=== PATIENT | female | born 1945 | race Hispanic/Latino ===

== ENCOUNTER 2018-05-21 18:09 | Emergency (ER) | payer MEDICARE | END 2018-05-21 19:41 | disposition home or self-care (01) | LOC: EDH 18:09 | DX: S62.91XA Unspecified fracture of right hand, initial encounter for closed fracture (principal); M25.531 Pain in right wrist; E11.9 Type 2 diabetes mellitus without complications; E78.5 Hyperlipidemia, unspecified; I10 Essential (primary) hypertension; Z88.0 Allergy status to penicillin; Z91.041 Radiographic dye allergy status; Z88.8 Allergy status to other drugs, medicaments and biological substances; W18.39XA Other fall on same level, initial encounter; Y93.89 Activity, other specified; Y92.89 Other specified places as the place of occurrence of the external cause; Y99.8 Other external cause status | CPT/HCPCS: 29125; 73110 ==

== ENCOUNTER 2018-06-03 13:34 | Emergency (ER) | payer MEDICARE | END 2018-06-03 13:53 | disposition left against medical advice (07) | LOC: EDH 13:34 | DX: M79.601 Pain in right arm (principal); Z53.21 Procedure and treatment not carried out due to patient leaving prior to being seen by health care provider ==

== ENCOUNTER 2019-02-15 15:18 | Inpatient (IN) | payer MEDICARE ==
[~2019-02-15] VITALS: Ht 167.6 cm; Wt 66.5 kg
[2019-02-15 15:37] LABS: BASOPHILS % (AUTO) 0.5 % (0.0-5.0); EOSINOPHILS % (AUTO) 1.1 % (0.0-8.0); LYMPHOCYTES % (AUTO) 29.4 % (21.0-51.0); MEAN CORPUSCULAR HGB CONC 33.9 g/dL (32.0-36.0); MEAN CORPUSCULAR VOLUME 91.5 fL (79-99); MONOCYTES % (AUTO) 10.1 % (3.0-13.0); NEUTROPHILS % (AUTO) 58.9 % (40.0-77.0); NUCLEATED RED BLOOD CELLS 0.1 % (0.0-0.19); PLATELET COUNT (AUTO) 146 K/uL (130-400); RED BLOOD CELL COUNT(AUTO) 3.83 MIL/uL (4.00-5.50); RED CELL DISTRIBUTION WIDTH 13.8 % (11.0-15.5); WHITE BLOOD COUNT (AUTO) 5.5 K/uL (4.8-10.8)
[2019-02-15 15:51] LABS: CREATININE 0.7 mg/dL (0.5-1.5); POTASSIUM 3.8 mmol/L (3.5-5.1)
[2019-02-15 15:52] LABS: INR 0.93 (0.85-1.15); PARTIAL THROMBOPLASTIN TIME 27.1 SEC (26.3-35.5); PROTHROMBIN TIME 9.8 SEC (9.6-11.6)
[2019-02-15 15:55] LABS: ALBUMIN 3.8 g/dL (3.5-5.0); BILIRUBIN,TOTAL 0.5 mg/dL (0.2-1.0); TOTAL PROTEIN, SERUM 7.7 g/dL (6.0-8.3)
[2019-02-15] MEDS ORDERED: ASPIRIN 325 MG TABLET ONE (16:03)
[2019-02-15 16:32] LABS: APPEARANCE,URINE Clear (CLEAR); BILIRUBIN,URINE Negative (NEGATIVE); COLOR,URINE Yellow (YELLOW); GLUCOSE, URINE (UA) TRACE mg/dL (NEGATIVE); KETONES,URINE Negative (NEGATIVE); LEUKOCYTE ESTERASE ,URINE Small (NEGATIVE); NITRATE,URINE Negative (NEGATIVE); OCCULT BLOOD,URINE Negative (NEGATIVE); PH,URINE 6.5 (5.0-8.0); PROTEIN,URINE Negative (NEGATIVE)
[2019-02-15 16:43] LABS: BACTERIA,URINE Rare /HPF (None Seen); RBC,URINE None Seen /HPF (0-1); SQUAMOUS EPITHELIAL CELL,UR 0-2 /HPF (0-2)
[2019-02-15] MEDS ORDERED: NITROGLYCERIN 1GM/1 INCH PACKET TD ONE (17:00)
[2019-02-15] MEDS ORDERED: NITROGLYCERIN 0.2 MG/HR PATCH TD SCH (21:00)
[2019-02-15] MEDS: INSULIN HUMULIN R 100 UNIT/ML 3ML SQ SCH (21:00)
[2019-02-15 21:30] VITALS: BP 182/82
[2019-02-15] MEDS ORDERED: METF-446 PO (21:45)
[2019-02-15] MEDS ORDERED: CITA10TA7 PO (21:45)
[2019-02-15] MEDS ORDERED: LORA10TA7 PO (21:45)
[2019-02-15] MEDS ORDERED: SIMV20TA6 PO (21:45)
[2019-02-15] MEDS ORDERED: CALC1TAB3 PO (21:45)
[2019-02-15] MEDS ORDERED: OLOP2.5D6 OU (21:45)
[2019-02-15] MEDS ORDERED: ASPI81TA40 PO (21:45)
[2019-02-15] MEDS ORDERED: SITA100T12 PO (21:45)
[2019-02-15] MEDS ORDERED: AMLO5TAB9 PO (21:45)
--- NOTE | 2019-02-15 21:45 | NUR ---
ADMIT NOTE ADMIT TO ROOM 430 VIA STRETCHER FROM ER. PATIENT AWAKE, ALERT, OX3, NO SOB, NO C/O PAIN AT THIS TIME, PATIENTS DAUGHTER AT BEDSIDE, TEACH PLAN OF CARE AND EXPECTED OUTCOME , PATIENT VERBALIZES UNDERSTANDING VIA TEACH BACK
[2019-02-15] MEDS: METOPROLOL TARTRATE 25 MG TAB PO SCH (22:42)
[2019-02-16] VITALS: BP 139/75
[2019-02-16 04:00] VITALS: BP 134/70
[2019-02-16] MEDS ORDERED: NITROGLYCERIN 1GM/1 INCH PACKET TD ONE (04:10)
[2019-02-16] MEDS ORDERED: ACETAMINOPHEN 325 MG TAB ONE (04:20)
[2019-02-16] MEDS ORDERED: ACETAMINOPHEN 325 MG TAB PO PRN (04:30)
[2019-02-16] MEDS: NITROGLYCERIN 1GM/1 INCH PACKET TD SCH ×2 (05:22→13:22)
[2019-02-16] MEDS: INSULIN HUMULIN R 100 UNIT/ML 3ML SQ SCH ×4 (05:39→21:25)
[2019-02-16 05:49] LABS: HEMATOCRIT 36.5 % (36-48); MEAN CORPUSCULAR HEMOGLOBIN 30.8 pg (27.0-33.0); MEAN CORPUSCULAR HGB CONC 33.7 g/dL (32.0-36.0); MEAN CORPUSCULAR VOLUME 91.5 fL (79-99); PLATELET COUNT (AUTO) 160 K/uL (130-400); RED BLOOD CELL COUNT(AUTO) 3.99 MIL/uL (4.00-5.50)
[2019-02-16 06:05] LABS: CREATININE 0.6 mg/dL (0.5-1.5)
[2019-02-16] MEDS: FAMOTIDINE/PF 20 MG/2 ML VIAL IV SCH (08:30)
[2019-02-16] MEDS: ACETAMINOPHEN 325 MG TAB PO PRN (08:30)
[2019-02-16] MEDS: METOPROLOL TARTRATE 25 MG TAB PO SCH ×2 (08:31→20:22)
[2019-02-16] MEDS: ENOXAPARIN SODIUM 40 MG/0.4 ML SYRINGE SQ SCH (08:31)
[2019-02-16 08:34] VITALS: BP 158/88
[2019-02-16 11:35] VITALS: BP 133/77
--- NOTE | 2019-02-16 13:00 | NUR ---
INITIAL ATTEMPTED PT IN [facility], WILL RETURN. PER NOTES, UP AMBULATORY, FAMILY SUPPORT, PAIN FREE, CARDIAC WORK UP NEGATIVE, EXPECT DC TODAY OR TOMORROW Addendum: 02/17/19 at 0800 by FIFI BARNHART RN CM Amended: Links added.
--- NOTE | 2019-02-16 14:49 | NUR ---
ASKED RE PLAN OF CARE [facility] STATES 24 TO 48 HRS. NOT NTICIPATING DISCHARGE YET Addendum: 02/16/19 at 1450 by FIFI BARNHART RN CM Amended: Links added.
[2019-02-16 16:28] VITALS: BP 134/78
[2019-02-16 19:05] VITALS: BP 134/69
[2019-02-16] MEDS: AMLODIPINE BESYLATE 5 MG TAB PO SCH (20:22)
[2019-02-17 00:03] VITALS: BP 137/78
[2019-02-17 03:59] VITALS: BP 129/74
[2019-02-17 04:36] LABS: HEMATOCRIT 38.9 % (36-48); MEAN CORPUSCULAR HEMOGLOBIN 31.1 pg (27.0-33.0); MEAN CORPUSCULAR VOLUME 91.5 fL (79-99); NUCLEATED RED BLOOD CELLS 0.1 % (0.0-0.19); PLATELET COUNT (AUTO) 151 K/uL (130-400); RED BLOOD CELL COUNT(AUTO) 4.25 MIL/uL (4.00-5.50); RED CELL DISTRIBUTION WIDTH 13.9 % (11.0-15.5); WHITE BLOOD COUNT (AUTO) 4.5 K/uL (4.8-10.8)
[2019-02-17 04:50] LABS: CREATININE 0.7 mg/dL (0.5-1.5); POTASSIUM 3.9 mmol/L (3.5-5.1)
[2019-02-17] MEDS: INSULIN HUMULIN R 100 UNIT/ML 3ML SQ SCH ×2 (06:06→12:05)
[2019-02-17] MEDS: ACETAMINOPHEN 325 MG TAB PO PRN (06:08)
[2019-02-17 08:17] VITALS: BP 128/76
[2019-02-17] MEDS: FAMOTIDINE/PF 20 MG/2 ML VIAL IV SCH (08:43)
[2019-02-17] MEDS: AMLODIPINE BESYLATE 5 MG TAB PO SCH (08:44)
[2019-02-17] MEDS: METOPROLOL TARTRATE 25 MG TAB PO SCH (08:44)
[2019-02-17] MEDS: ENOXAPARIN SODIUM 40 MG/0.4 ML SYRINGE SQ SCH (08:44)
[2019-02-17] MEDS ORDERED: CITALOPRAM 20 MG TABLET PO SCH (09:00)
[2019-02-17] MEDS ORDERED: LORATADINE 10 MG TABLET PO SCH (09:00)
[2019-02-17] MEDS ORDERED: ASPIRIN 81MG TAB.CHEW PO SCH (09:00)
[2019-02-17] MEDS ORDERED: HOME MEDICATION 1 EACH OP SCH (09:00)
[2019-02-17 11:28] VITALS: BP 125/67
--- NOTE | 2019-02-17 12:05 | NUR ---
DISCHARGE DISCHARGE TEACHING DONE WITH PATIENTUSING TEACHBACK METHOD, VERBALIZED UNDERSTANDING. NO NOTED SOB OR DISTRESS. NO NEW PRESCRIPTIONS GIVEN. PT AWARE OF NEED TO SET UP APPOINTMENT WITH CARDIOLOGY AND PCP. IV REMOVED, CATH TIP INTACT. TELEPACK REMOVED AND RETURNED.PENDING TO BE TRANSFERRED OUT VIA PRIVATE VEHICLE.
[2019-02-18] MEDS ORDERED: SIMVASTATIN 20 MG TABLET PO SCH (09:00)
== END 2019-02-17 12:37 | disposition home or self-care (01) | DRG 206 ==
LOC: EDH 15:18 → EDHIP 17:38 → 4AH 21:31
PROVIDERS: ADMIT Hospitalist; ATTEND Hospitalist
DX: M94.0 Chondrocostal junction syndrome [Tietze] (principal); I25.110 Atherosclerotic heart disease of native coronary artery with unstable angina pectoris; K21.9 Gastro-esophageal reflux disease without esophagitis; E11.65 Type 2 diabetes mellitus with hyperglycemia; E78.5 Hyperlipidemia, unspecified; I10 Essential (primary) hypertension; E66.9 Obesity, unspecified; I34.0 Nonrheumatic mitral (valve) insufficiency; M19.90 Unspecified osteoarthritis, unspecified site; Z68.23 Body mass index [BMI] 23.0-23.9, adult; Z88.0 Allergy status to penicillin; Z88.8 Allergy status to other drugs, medicaments and biological substances
CPT/HCPCS: 36415; 71045; 80048; 80053; 81001; 82150; 82550; 82948; 83690; 84484; 85025; 85027; 85610; 85730; 93005; 93306; 93880; 99291; G0378; J1650; J1815; J3490

== ENCOUNTER 2019-07-03 07:49 | Day surgery (SDC) | payer MEDICARE ==
[~2019-07-03] VITALS: Ht 167.6 cm; Wt 69.1 kg
[~2019-07-03 07:49] MED LIST: ACET1TAB12 PO; AMLO5TAB9 PO; ASPI81TA40 PO; CALC1TAB3 PO; CHOL400C9 PO; CLON0.1T PO; LOSA25TA41 PO; METF-446 PO; OMEP40CA13 PO; SIMV-43 PO; SITA100T12 PO; SODIUM CHLORIDE 0.9% 1000ML 1,000 ML IV ONE; TRAM50TA4 PO
[2019-07-03 08:39] VITALS: BP 140/76
[2019-07-03] MEDS ORDERED: PROPOFOL 10 MG/ML 20ML VIAL IV ONE ×2 (09:31)
[2019-07-03 10:02] VITALS: BP 96/60
[2019-07-03 10:07] VITALS: BP 106/65
[2019-07-03 10:14] VITALS: BP 108/66
[2019-07-03 10:22] VITALS: BP 112/73
[2019-07-03 10:31] VITALS: BP 116/75
== END 2019-07-03 10:35 | disposition home or self-care (01) ==
LOC: DAH 07:49 → ENDO 07:49
PROVIDERS: ATTEND Internal Medicine
DX: D12.3 Benign neoplasm of transverse colon (principal); D12.8 Benign neoplasm of rectum; K21.9 Gastro-esophageal reflux disease without esophagitis; K29.50 Unspecified chronic gastritis without bleeding; K57.30 Diverticulosis of large intestine without perforation or abscess without bleeding; K64.0 First degree hemorrhoids; E11.9 Type 2 diabetes mellitus without complications; E78.5 Hyperlipidemia, unspecified; I10 Essential (primary) hypertension; M19.90 Unspecified osteoarthritis, unspecified site; Z88.0 Allergy status to penicillin; Z88.1 Allergy status to other antibiotic agents; Z88.8 Allergy status to other drugs, medicaments and biological substances; Z88.3 Allergy status to other anti-infective agents; Z79.84 Long term (current) use of oral hypoglycemic drugs; Z79.899 Other long term (current) drug therapy; Z86.010 Personal history of colon polyps; Z98.890 Other specified postprocedural states
CPT/HCPCS: 43239; 45380; 45385; 82948 ×2; 88305; A4215; A4221; A4222; A4223; A4606; A4615; A4663; J2704 ×2; J7030

== ENCOUNTER → 2019-09-20 | Outpatient (CLI) | payer MEDICARE ==
[~2019-09-20] MED LIST changes: -SODIUM CHLORIDE 0.9% 1000ML 1,000 ML IV ONE
== END | disposition home or self-care (01) ==
LOC: RAH 07:41
PROVIDERS: ATTEND Internal Medicine Gastroenterology
DX: N20.0 Calculus of kidney (principal); R94.5 Abnormal results of liver function studies
CPT/HCPCS: 76700

== ENCOUNTER → 2020-04-15 | Outpatient (CLI) | payer MEDICARE | END | disposition home or self-care (01) | LOC: RAH 09:31 | PROVIDERS: ATTEND Internal Medicine Gastroenterology | DX: K76.9 Liver disease, unspecified (principal); R94.5 Abnormal results of liver function studies | CPT/HCPCS: 76700; 93975 ==

== ENCOUNTER 2020-11-12 16:40 | Observation (INO) | payer MEDICARE ==
[~2020-11-12] VITALS: Ht 167.6 cm; Wt 70.3 kg
[~2020-11-12 16:40] MED LIST changes: +AMLO-257 PO; -AMLO5TAB9 PO
[2020-11-12 17:09] LABS: BASOPHILS % (AUTO) 0.6 % (0.0-5.0); EOSINOPHILS % (AUTO) 2.3 % (0.0-8.0); HEMATOCRIT 35.9 % (36-48); LYMPHOCYTES % (AUTO) 29.8 % (21.0-51.0); MEAN CORPUSCULAR HEMOGLOBIN 30.3 pg (27.0-33.0); MEAN CORPUSCULAR HGB CONC 33.7 g/dL (32.0-36.0); MEAN CORPUSCULAR VOLUME 89.8 fL (79-99); MONOCYTES % (AUTO) 9.1 % (3.0-13.0); NEUTROPHILS % (AUTO) 57.9 % (40.0-77.0); PLATELET COUNT (AUTO) 171 K/uL (130-400); RED CELL DISTRIBUTION WIDTH 13.3 % (11.0-15.5); WHITE BLOOD COUNT (AUTO) 6.4 K/uL (4.8-10.8)
[2020-11-12 17:21] LABS: CREATININE 0.9 mg/dL (0.5-1.5)
[2020-11-12 17:24] LABS: INR 0.99 (0.85-1.15); PROTHROMBIN TIME 10.8 SEC (9.6-11.6)
[2020-11-12 17:25] LABS: ALBUMIN 4.4 g/dL (3.5-5.0); BILIRUBIN,TOTAL 0.5 mg/dL (0.2-1.0); PARTIAL THROMBOPLASTIN TIME 26.2 SEC (26.3-35.5); TOTAL PROTEIN, SERUM 8.7 g/dL (6.0-8.3)
[2020-11-12] MEDS ORDERED: NITROGLYCERIN 1GM/1 INCH PACKET TD ONE (17:45)
[2020-11-12] MEDS ORDERED: NITROGLYCERIN 0.4 MG SL TAB SL ONE (17:45)
[2020-11-12] MEDS ORDERED: ASPIRIN 325 MG TABLET ONE (17:45)
[2020-11-12] MEDS ORDERED: ACETAMINOPHEN 325 MG TAB PO PRN (20:30)
[2020-11-12] MEDS ORDERED: MORPHINE SULFATE 2 MG/ML 1ML SYG IVP PRN (20:30)
[2020-11-12] MEDS ORDERED: ONDANSETRON HCL 4 MG/2 ML VIAL IVP PRN (20:30)
[2020-11-12] MEDS: METOPROLOL TARTRATE 25 MG TAB PO SCH (21:00)
[2020-11-12] MEDS: INSULIN R PO SS1 SQ SCH (21:00)
[2020-11-12 22:39] LABS: CREATINE KINASE, TOTAL 79 U/L (21-232); MYOGLOBIN 27 ng/mL (10-92); TROPONIN I < 0.04 ng/mL (0.00-0.06)
[2020-11-13] MEDS ORDERED: ACETAMINOPHEN 325 MG TAB ONE (01:18)
[2020-11-13 02:53] VITALS: BP 152/76
[2020-11-13 05:43] LABS: HEMATOCRIT 34.4 % (36-48); MEAN CORPUSCULAR HEMOGLOBIN 30.4 pg (27.0-33.0); MEAN CORPUSCULAR HGB CONC 33.7 g/dL (32.0-36.0); MEAN CORPUSCULAR VOLUME 90.1 fL (79-99); RED BLOOD CELL COUNT(AUTO) 3.82 MIL/uL (4.00-5.50); RED CELL DISTRIBUTION WIDTH 13.3 % (11.0-15.5); WHITE BLOOD COUNT (AUTO) 5.8 K/uL (4.8-10.8)
[2020-11-13] MEDS ORDERED: METF-444 PO (05:51)
[2020-11-13] MEDS ORDERED: LORA10TA7 PO (05:51)
[2020-11-13 05:53] LABS: HEMOGLOBIN A1C 7.4 % (4.0-6.0)
[2020-11-13 06:07] LABS: ALANINE AMINOTRANSFERASE 82 U/L (12-78); ALBUMIN 3.7 g/dL (3.5-5.0); ASPARTATE AMINOTRANSFERASE 58 U/L (10-37); BILIRUBIN,TOTAL 0.8 mg/dL (0.2-1.0); CARBON DIOXIDE 29 mmol/L (21-32); CHLORIDE 101 mmol/L (101-111); CHOLESTEROL 162 mg/dL (<200); CREATINE KINASE, TOTAL 57 U/L (21-232); CREATININE 0.9 mg/dL (0.5-1.5); GLOMERULAR FILTR. RATE CALC 65 mL/min (>60); GLUCOSE,RANDOM 210 mg/dL (70-105); HDL CHOLESTEROL 75 mg/dL (35-85); LDL DIRECT 69 mg/dL (0-99); MYOGLOBIN 27 ng/mL (10-92); POTASSIUM 3.8 mmol/L (3.5-5.1); SODIUM SERUM 136 mmol/L (136-145); TOTAL PROTEIN, SERUM 7.8 g/dL (6.0-8.3); TRIGLYCERIDES 59 mg/dL (30-200); TROPONIN I < 0.04 ng/mL (0.00-0.06); UREA NITROGEN, BLOOD 15 mg/dL (7-18)
[2020-11-13] MEDS: INSULIN R PO SS1 SQ SCH ×4 (06:15→21:00)
[2020-11-13 07:00] VITALS: BP 159/77
[2020-11-13 11:30] VITALS: BP 142/87
[2020-11-13] MEDS: ASPIRIN 81MG TAB.CHEW PO SCH (12:02)
[2020-11-13] MEDS: ENOXAPARIN SODIUM 40 MG/0.4 ML SYRINGE SQ SCH (12:02)
[2020-11-13] MEDS: METOPROLOL TARTRATE 25 MG TAB PO SCH ×2 (12:02→21:16)
[2020-11-13 16:00] VITALS: BP 138/74
[2020-11-13 19:45] VITALS: BP 129/73
[2020-11-13] MEDS ORDERED: LACTULOSE 20 GM/30 ML UDCUP PO PRN (21:15)
[2020-11-13] MEDS: LACTULOSE 20 GM/30 ML UDCUP PO SCH (21:15)
[2020-11-13 23:53] VITALS: BP 136/69
[2020-11-14] MEDS: LACTULOSE 20 GM/30 ML UDCUP PO SCH ×3 (03:15→15:15)
[2020-11-14 04:17] VITALS: BP 146/82
[2020-11-14 05:30] LABS: HEMATOCRIT 35.9 % (36-48); MEAN CORPUSCULAR HGB CONC 33.7 g/dL (32.0-36.0); MEAN CORPUSCULAR VOLUME 89.1 fL (79-99); RED BLOOD CELL COUNT(AUTO) 4.03 MIL/uL (4.00-5.50); RED CELL DISTRIBUTION WIDTH 13.2 % (11.0-15.5); WHITE BLOOD COUNT (AUTO) 4.8 K/uL (4.8-10.8)
[2020-11-14 05:52] LABS: MAGNESIUM 1.9 mg/dL (1.80-2.40); POTASSIUM 4.1 mmol/L (3.5-5.1)
[2020-11-14 05:57] LABS: CREATININE 0.8 mg/dL (0.5-1.5)
[2020-11-14] MEDS: INSULIN R PO SS1 SQ SCH ×3 (06:44→16:30)
[2020-11-14 07:00] VITALS: BP 143/75
[2020-11-14] MEDS: METOPROLOL TARTRATE 25 MG TAB PO SCH (10:14)
[2020-11-14] MEDS: ASPIRIN 81MG TAB.CHEW PO SCH (10:14)
[2020-11-14] MEDS: ENOXAPARIN SODIUM 40 MG/0.4 ML SYRINGE SQ SCH (10:14)
[2020-11-14 11:30] VITALS: BP 167/77
[2020-11-14 16:16] VITALS: BP 108/46
== END 2020-11-14 18:10 | disposition home or self-care (01) ==
LOC: EDH 16:40 → INTOOBSV 19:05 → EDHIP 19:05 → 3DH 11-13 02:03
PROVIDERS: ADMIT Internal Medicine Infectious Disease; ATTEND Internal Medicine Infectious Disease
DX: R07.89 Other chest pain (principal); I10 Essential (primary) hypertension; I25.10 Atherosclerotic heart disease of native coronary artery without angina pectoris; E11.9 Type 2 diabetes mellitus without complications; E78.5 Hyperlipidemia, unspecified; R74.8 Abnormal levels of other serum enzymes; M19.90 Unspecified osteoarthritis, unspecified site; E66.9 Obesity, unspecified; Z79.84 Long term (current) use of oral hypoglycemic drugs; Z79.899 Other long term (current) drug therapy; Z88.0 Allergy status to penicillin; Z88.1 Allergy status to other antibiotic agents; Z91.041 Radiographic dye allergy status; Z88.5 Allergy status to narcotic agent; Z88.8 Allergy status to other drugs, medicaments and biological substances; Z68.25 Body mass index [BMI] 25.0-25.9, adult
CPT/HCPCS: 36415 ×3; 71045; 80048; 80053 ×2; 80061; 82550 ×2; 82948 ×7; 83036; 83735 ×2; 83874 ×2; 84484 ×3; 85025; 85027 ×2; 85610; 85730; 93005; 96372 ×2; 99285; G0378 ×47; J1650 ×2; J1815

== ENCOUNTER → 2020-11-17 | Outpatient (CLI) | payer OTHER ==
[~2020-11-17] MED LIST changes: +LORA10TA7 PO; +METF-444 PO; -METF-446 PO
== END | disposition home or self-care (01) ==
LOC: RAH 10:02
PROVIDERS: ATTEND Internal Medicine Cardiovascular Disease
DX: Z13.6 Encounter for screening for cardiovascular disorders (principal); I10 Essential (primary) hypertension
CPT/HCPCS: 75571

== ENCOUNTER → 2022-02-08 | Outpatient (CLI) | payer MEDICARE ==
[~2022-02-08] MED LIST changes: -OMEP40CA13 PO; +OMEP40CA21 PO
== END | disposition home or self-care (01) ==
LOC: RAH 10:00
PROVIDERS: ATTEND Internal Medicine Gastroenterology
DX: R10.11 Right upper quadrant pain (principal)
CPT/HCPCS: 71100

== ENCOUNTER → 2022-12-14 | Outpatient (CLI) | payer MEDICARE | END | disposition home or self-care (01) | LOC: RAH 08:11 | PROVIDERS: ATTEND Internal Medicine Nephrology | DX: Z12.31 Encounter for screening mammogram for malignant neoplasm of breast (principal) | CPT/HCPCS: 77067 ==

== ENCOUNTER → 2023-03-03 | Outpatient (CLI) | payer MEDICARE | END | disposition home or self-care (01) | LOC: RAH 07:50 | PROVIDERS: ATTEND Internal Medicine Nephrology | DX: R10.11 Right upper quadrant pain (principal) | CPT/HCPCS: 76700 ==

== ENCOUNTER 2023-06-03 10:38 | Observation (INO) | payer MEDICARE ==
[~2023-06-03] VITALS: Ht 167.6 cm; Wt 70.0 kg
[2023-06-03 11:04] LABS: BASOPHILS # (AUTO) 0.04 K/uL (0.00-0.20); BASOPHILS % (AUTO) 0.7 % (0.0-5.0); EOSINOPHILS # (AUTO) 0.14 K/uL (0.00-0.70); EOSINOPHILS % (AUTO) 2.6 % (0.0-8.0); HEMATOCRIT 35.6 % (36-48); IMMATURE GRANULOCYTE ABSOLUTE 0.03 K/uL (0-1); LYMPHOCYTES # (AUTO) 1.5 K/uL (1.0-4.8); LYMPHOCYTES % (AUTO) 28.4 % (21.0-51.0); MEAN CORPUSCULAR HEMOGLOBIN 30.1 pg (27.0-33.0); MEAN CORPUSCULAR HGB CONC 33.1 g/dL (32.0-36.0); MEAN CORPUSCULAR VOLUME 90.8 fL (79-99); MONOCYTES # (AUTO) 0.5 K/uL (0.1-1.0); MONOCYTES % (AUTO) 8.7 % (3.0-13.0); NEUTROPHILS # (AUTO) 3.2 K/uL (1.8-7.7); PLATELET COUNT (AUTO) 198 K/uL (130-400); RED BLOOD CELL COUNT(AUTO) 3.92 MIL/uL (4.00-5.50); RED CELL DISTRIBUTION WIDTH 14.3 % (11.0-15.5); WHITE BLOOD COUNT (AUTO) 5.4 K/uL (4.8-10.8)
[2023-06-03 11:12] LABS: CREATININE 0.8 mg/dL (0.5-1.5); POTASSIUM 4.1 mmol/L (3.5-5.1)
[2023-06-03 11:16] LABS: ALBUMIN 3.7 g/dL (3.5-5.0); BILIRUBIN,TOTAL 0.6 mg/dL (0.2-1.0); MAGNESIUM 1.5 mg/dL (1.80-2.40); TOTAL PROTEIN, SERUM 8.1 g/dL (6.0-8.3)
[2023-06-03] MEDS ORDERED: ONDANSETRON 4MG INJ IVP ONE (12:00)
[2023-06-03] MEDS ORDERED: PROCHLORPERAZINE 10MG/2ML INJ IV ONE (12:30)
[2023-06-03 14:23] LABS: APPEARANCE,URINE CLEAR (CLEAR); BILIRUBIN,URINE NEGATIVE (NEGATIVE); COLOR,URINE LIGHT-YELLOW (YELLOW); GLUCOSE, URINE (UA) 30 mg/dL (NEGATIVE); KETONES,URINE NEGATIVE (NEGATIVE); LEUKOCYTE ESTERASE ,URINE NEGATIVE Leu/uL (NEGATIVE); NITRATE,URINE NEGATIVE (NEGATIVE); OCCULT BLOOD,URINE NEGATIVE (NEGATIVE); PH,URINE 5.5 (5.0-8.0); PROTEIN,URINE NEGATIVE (NEGATIVE); UROBILINOGEN,URINE 0.2 mg/dL (0.2-1.0)
[2023-06-03 14:25] LABS: ADD UA MICROSCOPIC YES
[2023-06-03 14:29] LABS: MUCUS,URINE RARE LPF (None Seen); RBC,URINE 0-1 /HPF (0-1); WBC,URINE 0-1 /HPF (0-1)
[2023-06-03] MEDS ORDERED: ONDANSETRON 4MG INJ IVP PRN (15:00)
[2023-06-03] MEDS ORDERED: MORPHINE 2 MG SYG IVP PRN (15:00)
[2023-06-03] MEDS ORDERED: ACETAMINOPHEN 325 MG TAB PO PRN (15:00)
[2023-06-03] MEDS ORDERED: CITA10TA89 PO (16:14)
[2023-06-03] MEDS ORDERED: CYCL-309 PO (16:14)
[2023-06-03] MEDS ORDERED: ALPR0.255 PO (16:14)
[2023-06-03] MEDS ORDERED: METF-446 PO (16:14)
[2023-06-03] MEDS ORDERED: ISOS30TA92 PO (16:14)
[2023-06-03 16:25] LABS: CHOLESTEROL 263 mg/dL (<200); HDL CHOLESTEROL 99 mg/dL (35-85); LDL DIRECT 127 mg/dL (0-99); TRIGLYCERIDES 104 mg/dL (30-200)
[2023-06-03 16:45] VITALS: BP 164/81; PULSE 102; RESP 18
[2023-06-03] MEDS ORDERED: MAGNESIUM 2GM PREMIX 50ML 50 ML IV PRN (17:30)
[2023-06-03 19:00] VITALS: BP 150/71; PULSE 80; RESP 19
[2023-06-03 20:15] VITALS: O2SAT 99
[2023-06-03 23:30] VITALS: BP 133/72; PULSE 74; RESP 18
[2023-06-04 05:00] VITALS: BP 186/75; PULSE 71; RESP 18
[2023-06-04 05:28] LABS: BASOPHILS # (AUTO) 0.04 K/uL (0.00-0.20); BASOPHILS % (AUTO) 0.7 % (0.0-5.0); EOSINOPHILS # (AUTO) 0.12 K/uL (0.00-0.70); HEMATOCRIT 36.6 % (36-48); IMMATURE GRANULOCYTE ABSOLUTE 0.02 K/uL (0-1); LYMPHOCYTES # (AUTO) 2.3 K/uL (1.0-4.8); LYMPHOCYTES % (AUTO) 38.4 % (21.0-51.0); MEAN CORPUSCULAR HEMOGLOBIN 30.3 pg (27.0-33.0); MEAN CORPUSCULAR HGB CONC 32.5 g/dL (32.0-36.0); MEAN CORPUSCULAR VOLUME 93.1 fL (79-99); MONOCYTES # (AUTO) 0.7 K/uL (0.1-1.0); MONOCYTES % (AUTO) 11.1 % (3.0-13.0); NEUTROPHILS # (AUTO) 2.8 K/uL (1.8-7.7); NEUTROPHILS % (AUTO) 47.5 % (40.0-77.0); PLATELET COUNT (AUTO) 180 K/uL (130-400); RED BLOOD CELL COUNT(AUTO) 3.93 MIL/uL (4.00-5.50); RED CELL DISTRIBUTION WIDTH 14.2 % (11.0-15.5); WHITE BLOOD COUNT (AUTO) 5.9 K/uL (4.8-10.8)
[2023-06-04 05:39] VITALS: BP 131/60; PULSE 71
[2023-06-04 05:50] LABS: ALBUMIN 3.6 g/dL (3.5-5.0); BILIRUBIN,TOTAL 0.7 mg/dL (0.2-1.0); CREATININE 0.7 mg/dL (0.5-1.5); HEMOGLOBIN A1C 7.5 % (4.0-6.0); MAGNESIUM 1.6 mg/dL (1.80-2.40); POTASSIUM 4.3 mmol/L (3.5-5.1); TOTAL PROTEIN, SERUM 7.7 g/dL (6.0-8.3)
[2023-06-04 08:00] VITALS: BP 143/78; PULSE 97; RESP 20
[2023-06-04] MEDS ORDERED: ENOXAPARIN SODIUM 40 MG/0.4 ML SYRINGE SQ SCH (09:00)
[2023-06-04] MEDS ORDERED: ASPIRIN 81 MG EC TAB PO SCH (09:00)
[2023-06-04 12:00] VITALS: BP 143/74; PULSE 86; RESP 20
== END 2023-06-04 14:45 | disposition home or self-care (01) ==
LOC: EDH 10:38 → EDHIP 14:48 → INTOOBSV 14:48 → 3AH 16:28
PROVIDERS: ADMIT Internal Medicine Infectious Disease; ATTEND Internal Medicine Infectious Disease
DX: I16.0 Hypertensive urgency (principal); E11.9 Type 2 diabetes mellitus without complications; R74.8 Abnormal levels of other serum enzymes; I10 Essential (primary) hypertension; M19.90 Unspecified osteoarthritis, unspecified site; E78.5 Hyperlipidemia, unspecified; Z88.5 Allergy status to narcotic agent; Z88.0 Allergy status to penicillin; Z88.8 Allergy status to other drugs, medicaments and biological substances; Z79.84 Long term (current) use of oral hypoglycemic drugs; Z79.82 Long term (current) use of aspirin; Z95.5 Presence of coronary angioplasty implant and graft
CPT/HCPCS: 96375; 99285; 83735 ×2; 84484 ×5; 80061; 80053 ×2; 85025 ×2; 82948 ×3; 81001; 36415 ×2; 71045; 76700; 93005; 96372; 96365; 83036; G0378 ×24; J0780; J2405; J3475; J1650

== ENCOUNTER → 2023-06-19 | Outpatient (CLI) | payer MEDICARE ==
[~2023-06-19] MED LIST changes: -ACET1TAB12 PO; +ALPR0.255 PO; -CALC1TAB3 PO; -CHOL400C9 PO; +CITA10TA89 PO; -CLON0.1T PO; +CYCL-309 PO; +ISOS30TA92 PO; -METF-444 PO; +METF-446 PO; -OMEP40CA21 PO; -SIMV-43 PO
[2023-06-19 11:57] LABS: BASOPHILS # (AUTO) 0.05 K/uL (0.00-0.20); BASOPHILS % (AUTO) 0.8 % (0.0-5.0); EOSINOPHILS # (AUTO) 0.24 K/uL (0.00-0.70); HEMATOCRIT 36.8 % (36-48); IMMATURE GRANULOCYTE ABSOLUTE 0.02 K/uL (0-1); LYMPHOCYTES # (AUTO) 2.5 K/uL (1.0-4.8); LYMPHOCYTES % (AUTO) 41.2 % (21.0-51.0); MEAN CORPUSCULAR HEMOGLOBIN 30.6 pg (27.0-33.0); MEAN CORPUSCULAR HGB CONC 32.9 g/dL (32.0-36.0); MEAN CORPUSCULAR VOLUME 93.2 fL (79-99); MONOCYTES # (AUTO) 0.5 K/uL (0.1-1.0); NEUTROPHILS # (AUTO) 2.7 K/uL (1.8-7.7); NEUTROPHILS % (AUTO) 44.7 % (40.0-77.0); PLATELET COUNT (AUTO) 188 K/uL (130-400); RED BLOOD CELL COUNT(AUTO) 3.95 MIL/uL (4.00-5.50); RED CELL DISTRIBUTION WIDTH 14.2 % (11.0-15.5)
[2023-06-19 12:19] LABS: BILIRUBIN,TOTAL 0.6 mg/dL (0.2-1.0); CREATININE 0.8 mg/dL (0.5-1.5); MAGNESIUM 1.5 mg/dL (1.80-2.40); POTASSIUM 4.2 mmol/L (3.5-5.1); TOTAL PROTEIN, SERUM 8.4 g/dL (6.0-8.3)
== END | disposition home or self-care (01) ==
LOC: LAB 06-16 13:49
PROVIDERS: ATTEND Physician Assistant
DX: I10 Essential (primary) hypertension (principal); E78.5 Hyperlipidemia, unspecified
CPT/HCPCS: 36415; 80053; 80061; 83735; 83880; 85025

== ENCOUNTER 2023-11-03 04:40 | Emergency (ER) | payer MEDICARE ==
[~2023-11-03] VITALS: Ht 167.6 cm; Wt 69.9 kg
[2023-11-03] MEDS: OXYMETAZOLINE HCL SPRAY 15 ML BOTTLE ONE (04:57)
[2023-11-03 05:12] LABS: BASOPHILS # (AUTO) 0.04 K/uL (0.00-0.20); BASOPHILS % (AUTO) 0.7 % (0.0-5.0); EOSINOPHILS # (AUTO) 0.15 K/uL (0.00-0.70); EOSINOPHILS % (AUTO) 2.7 % (0.0-8.0); HEMATOCRIT 35.1 % (36-48); IMMATURE GRANULOCYTE ABSOLUTE 0.01 K/uL (0-1); LYMPHOCYTES # (AUTO) 2.3 K/uL (1.0-4.8); LYMPHOCYTES % (AUTO) 42.7 % (21.0-51.0); MEAN CORPUSCULAR HEMOGLOBIN 29.6 pg (27.0-33.0); MEAN CORPUSCULAR HGB CONC 34.2 g/dL (32.0-36.0); MEAN CORPUSCULAR VOLUME 86.5 fL (79-99); MONOCYTES # (AUTO) 0.6 K/uL (0.1-1.0); MONOCYTES % (AUTO) 10.3 % (3.0-13.0); NEUTROPHILS # (AUTO) 2.4 K/uL (1.8-7.7); NEUTROPHILS % (AUTO) 43.4 % (40.0-77.0); PLATELET COUNT (AUTO) 158 K/uL (130-400); RED BLOOD CELL COUNT(AUTO) 4.06 MIL/uL (4.00-5.50); RED CELL DISTRIBUTION WIDTH 14.2 % (11.0-15.5); WHITE BLOOD COUNT (AUTO) 5.5 K/uL (4.8-10.8)
[2023-11-03 05:22] LABS: CREATININE 0.7 mg/dL (0.5-1.0); INR <= 0.93 (0.85-1.15); PROTHROMBIN TIME 10.6 SEC (9.6-11.6)
[2023-11-03 05:24] LABS: PARTIAL THROMBOPLASTIN TIME 28.1 SEC (26.3-35.5)
[2023-11-03 05:29] LABS: BILIRUBIN,TOTAL 0.6 mg/dL (0.2-1.0); TOTAL PROTEIN, SERUM 8.5 g/dL (6.0-8.3)
[2023-11-03 05:43] LABS: B-TYPE NATRIURETIC PEPTIDE 39 pg/mL (0-100)
[2023-11-03 10:42] VITALS: BP 176/91; PULSE 77; RESP 18; O2SAT 98
== END 2023-11-03 10:42 | disposition home or self-care (01) ==
LOC: EDH 04:40
DX: R04.0 Epistaxis (principal); I10 Essential (primary) hypertension; E11.9 Type 2 diabetes mellitus without complications; Z88.0 Allergy status to penicillin; Z88.5 Allergy status to narcotic agent; Z88.8 Allergy status to other drugs, medicaments and biological substances; Z79.84 Long term (current) use of oral hypoglycemic drugs; Z79.899 Other long term (current) drug therapy
CPT/HCPCS: 36415; 80053; 82550; 83880; 84484; 85025; 85610; 85730

== ENCOUNTER 2024-01-30 14:51 | Emergency (ER) | payer MEDICARE ==
[~2024-01-30] VITALS: Ht 167.6 cm; Wt 69.9 kg
[2024-01-30 15:41] LABS: BASOPHILS # (AUTO) 0.04 K/uL (0.00-0.20); BASOPHILS % (AUTO) 0.6 % (0.0-5.0); EOSINOPHILS # (AUTO) 0.12 K/uL (0.00-0.70); EOSINOPHILS % (AUTO) 1.7 % (0.0-8.0); HEMATOCRIT 34.9 % (36-48); IMMATURE GRANULOCYTE ABSOLUTE 0.02 K/uL (0-1); LYMPHOCYTES # (AUTO) 2.4 K/uL (1.0-4.8); LYMPHOCYTES % (AUTO) 34.8 % (21.0-51.0); MEAN CORPUSCULAR HEMOGLOBIN 29.3 pg (27.0-33.0); MEAN CORPUSCULAR VOLUME 88.8 fL (79-99); MONOCYTES # (AUTO) 0.7 K/uL (0.1-1.0); MONOCYTES % (AUTO) 10.6 % (3.0-13.0); NEUTROPHILS # (AUTO) 3.6 K/uL (1.8-7.7); PLATELET COUNT (AUTO) 186 K/uL (130-400); RED BLOOD CELL COUNT(AUTO) 3.93 MIL/uL (4.00-5.50); RED CELL DISTRIBUTION WIDTH 14.3 % (11.0-15.5)
[2024-01-30 15:55] LABS: POTASSIUM 4.1 mmol/L (3.5-5.1)
[2024-01-30 16:04] LABS: ALBUMIN 4.2 g/dL (3.5-5.0); BILIRUBIN,TOTAL 0.5 mg/dL (0.2-1.0); TOTAL PROTEIN, SERUM 8.7 g/dL (6.0-8.3)
[2024-01-30 16:56] LABS: APPEARANCE,URINE CLEAR (CLEAR); BILIRUBIN,URINE NEGATIVE (NEGATIVE); COLOR,URINE LIGHT-YELLOW (YELLOW); GLUCOSE, URINE (UA) NEGATIVE (NEGATIVE); KETONES,URINE NEGATIVE (NEGATIVE); LEUKOCYTE ESTERASE ,URINE 250 Leu/uL (NEGATIVE); NITRATE,URINE NEGATIVE (NEGATIVE); OCCULT BLOOD,URINE NEGATIVE (NEGATIVE); PROTEIN,URINE NEGATIVE (NEGATIVE); UROBILINOGEN,URINE 0.2 mg/dL (0.2-1.0)
[2024-01-30 16:58] LABS: ADD UA MICROSCOPIC YES
[2024-01-30 17:00] LABS: BACTERIA,URINE RARE /HPF (None Seen); SQUAMOUS EPITHELIAL CELL,UR RARE /HPF (0-2); WBC,URINE 26-50 /HPF (0-1)
[2024-01-30] MEDS: 0.9% NACL 500ML IV.SOLN 500 ML IV SCH (17:50)
[2024-01-30] MEDS: CEFTRIAXONE 1G VIAL IVPB ONE (17:50)
[2024-01-30] MEDS ORDERED: CEPH500B PO (20:15)
[2024-01-30] MEDS ORDERED: ONDA-243 PO (20:15)
[2024-01-30 20:18] VITALS: BP 150/68; PULSE 83; RESP 17; O2SAT 96
== END 2024-01-30 20:27 | disposition home or self-care (01) ==
LOC: EDH 14:51
DX: N39.0 Urinary tract infection, site not specified (principal); E11.9 Type 2 diabetes mellitus without complications; E78.00 Pure hypercholesterolemia, unspecified; I10 Essential (primary) hypertension; Z79.82 Long term (current) use of aspirin; Z79.84 Long term (current) use of oral hypoglycemic drugs; Z79.899 Other long term (current) drug therapy; Z88.0 Allergy status to penicillin; Z88.5 Allergy status to narcotic agent; Z88.8 Allergy status to other drugs, medicaments and biological substances; Z91.041 Radiographic dye allergy status
CPT/HCPCS: 99284; 96374; 96361; 84484; 80053; 83690; 85025; 87077; 87086; 87186; 81001; 36415; J7040; J0696

== ENCOUNTER 2024-03-19 06:09 | Day surgery (SDC) | payer MEDICARE ==
[2024-03-19] VITALS (10 sets, daily range): BP systolic 131–153; BP diastolic 73–87; PULSE 73–82; RESP 14–17
[~2024-03-19] VITALS: Ht 165.1 cm; Wt 67.1 kg
[~2024-03-19 06:09] MED LIST changes: +ERGO500093 PO; +EZET10TA48 PO; +LATA2.5D14 OU; +LEVO25TA54 PO; +LIDO20SO PO; -LOSA25TA41 PO; +LOSA50TA64 PO; +OMEP20CA12 PO; +OMEP40CA21 PO; +ONDA-243 PO; +PHEN99.5 PO; +PROP1DRO21 OP; -TRAM50TA4 PO
[2024-03-19] MEDS: 0.9%NACL 1000ML 1,000 ML IV ONE (07:07)
[2024-03-19] MEDS ORDERED: PROPOFOL 10 MG/ML 20ML VIAL IV ONE (08:31)
== END 2024-03-19 09:40 | disposition home or self-care (01) ==
LOC: ENDO 06:09 → DAH 06:09 → ENDO 09:40
PROVIDERS: ATTEND Internal Medicine Gastroenterology
DX: K21.00 Gastro-esophageal reflux disease with esophagitis, without bleeding (principal); K74.60 Unspecified cirrhosis of liver; I85.10 Secondary esophageal varices without bleeding; D12.6 Benign neoplasm of colon, unspecified; K64.0 First degree hemorrhoids; K74.69 Other cirrhosis of liver; K57.30 Diverticulosis of large intestine without perforation or abscess without bleeding; I10 Essential (primary) hypertension; E11.9 Type 2 diabetes mellitus without complications; E78.5 Hyperlipidemia, unspecified; M19.90 Unspecified osteoarthritis, unspecified site; K21.9 Gastro-esophageal reflux disease without esophagitis; M81.0 Age-related osteoporosis without current pathological fracture; Z98.890 Other specified postprocedural states; Z88.0 Allergy status to penicillin; Z88.1 Allergy status to other antibiotic agents; Z88.8 Allergy status to other drugs, medicaments and biological substances; Z79.899 Other long term (current) drug therapy
CPT/HCPCS: 82948 ×2; 43239; J7030 ×2; J2704; A4620; A4215; A4223; A7002; A4222; A4221; A4663; A4606; J3490

== ENCOUNTER → 2025-02-25 | Outpatient (CLI) | payer MEDICARE ==
[~2025-02-25] MED LIST changes: -ALPR0.255 PO; -ASPI81TA40 PO; +CYAN-35 PO; -CYCL-309 PO; -ERGO500093 PO; -LATA2.5D14 OU; -LEVO25TA54 PO; -LIDO20SO PO; -OMEP20CA12 PO; -ONDA-243 PO; +ONDA-245 PO; -PHEN99.5 PO; -PROP1DRO21 OP; +TIZA-194 PO
== END | disposition home or self-care (01) ==
LOC: RAH 10:52
PROVIDERS: ATTEND Internal Medicine Nephrology
DX: Z12.31 Encounter for screening mammogram for malignant neoplasm of breast (principal)
CPT/HCPCS: 77067